=== PATIENT | female | born 1965 | race Caucasian/White ===

== ENCOUNTER 2019-04-15 08:49 | Day surgery (SDC) | payer MEDICAID ==
[~2019-04-15 08:49] MED LIST: Lactated Ringers 1,000 ML IV SCH; Propofol 200 MG/20 ML SDV ONE; Sodium Chloride 0.9% 10 ML Syringe FLUSH PRN
[2019-04-15] MEDS ORDERED: Midazolam 1 MG/ML 2 ML SDV ONE (08:54)
[2019-04-15] MEDS ORDERED: Midazolam 1 MG/ML 2 ML SDV IV ONE (09:55)
[2019-04-15] MEDS ORDERED: Propofol 200 MG/20 ML SDV IV ONE (09:55)
--- NOTE | 2019-04-15 11:50 | PCM.PRNOTE ---
- Free Text/Narrative Note: PROCEDURE PERFORMED: Colonoscopy with polypectomy PRE-PROCEDURE DIAGNOSIS/INDICATION FOR PROCEDURE: Family history colorectal cancer (mother, 56yo), last colonoscopy 2001 CONSENT: Informed consent was obtained prior to the procedure after discussion of the risks (including pain, bleeding, infection, perforation, missed polyps, inability to completely remove polyps necessitating repeat colonoscopy, adverse reaction to anesthesia, cardiovascular event), benefits and alternatives and expected outcomes. The patient expressed understanding and wished to proceed. Verbal consent given and consent form signed. PROCEDURAL PAUSE: Completed SEDATION: Per anesthesia DESCRIPTION OF PROCEDURE: Patient was placed in the left lateral decubitus position. After adequate sedation and anesthetic was administered, a rectal exam was performed revealing no external abnormalities. A lubricated Olympus Video Colonoscope was inserted into the rectum and air insufflation was performed. The colonoscope was advanced through the rectum, sigmoid, descending, transverse, and ascending colon without difficulties. The cecum was reached and the ileocecal valve as well as the appendiceal orifice were identified and pictorially documented. After adequate visualization of the cecum, the scope was withdrawn, giving 360- degree views of the colonic mucosa and retroflexion was performed in the rectum with the following findings noted: Ileocecal valve: Normal Cecum: Normal Ascending colon: Normal Hepatic flexure: Normal Transverse colon: Normal Splenic flexure: Normal Descending colon: One polyp at 60cm removed with cold forceps with complete removal and subsequent hemostasis noted Sigmoid colon: Two polyps at 30cm removed with cold forceps (placed in same pathology container); Three polyps at 25cm removed with cold forceps (placed in same pathology container); Four polyps at 10cm removed with cold forceps ( placed in same pathology container); All polyp sites noted to have complete polyp removal and subsequent hemostasis noted Rectum: Grade I internal hemorrhoids The scope was straightened, air suction performed, and the scope withdrawn without complication. Preparation adequacy good. IMPRESSION: Colonoscopy performed revealing: - 10 polyps s/p complete polypectomy, pathology now pending - Internal hemorrhoids PLAN: Will contact the patient when pathology results received with recommendation for repeat colonoscopy, but at a minimum in 5 years given family history of colorectal cancer in 1st degree relative. Encourage increased fiber diet and bowel regimen to ensure 1-2 soft bowel movements per day.
== END 2019-04-15 12:18 | disposition home or self-care (01) ==
LOC: KA.SDS 08:49
PROVIDERS: ATTEND Family Medicine
DX: Z12.11 Encounter for screening for malignant neoplasm of colon (principal); K64.8 Other hemorrhoids; D12.4 Benign neoplasm of descending colon; K63.5 Polyp of colon; I10 Essential (primary) hypertension; E78.00 Pure hypercholesterolemia, unspecified; M51.16 Intervertebral disc disorders with radiculopathy, lumbar region; Z80.0 Family history of malignant neoplasm of digestive organs; Z79.899 Other long term (current) drug therapy; Z88.8 Allergy status to other drugs, medicaments and biological substances
CPT/HCPCS: 45380; J2250; J2704; J7120